=== PATIENT | male | born 1930 | race American Indian/Alaskan Native ===

== ENCOUNTER 2016-05-26 12:47 | Emergency (ER) | payer MEDICARE, OTHER ==
[~2016-05-26] VITALS: Ht 157.5 cm; Wt 56.7 kg
[~2016-05-26 12:47] MED LIST: ALLO300T2 PO; CARV3.1240 PO; CLOP75TA28 PO; DICL1GEL26 TOP; FURO40TA4 PO; MAGN400T5 PO; OMEP20CA5 PO; POTA10TA34 PO; TORS20TA20 PO; [UNRECOGNIZED DRUG - CODE] IV
[2016-05-26 13:10] VITALS: BP 115/58
[2016-05-26 13:57] LABS: Basophils # (auto) 0 uL; Basophils % (auto) 0.1 % (0.0-2.0); Eosinophils # (auto) 0 uL; Eosinophils % (auto) 0.6 % (0.0-7.0); Hematocrit 38.5 % (41.0-53.0); Hemoglobin 12.9 g/dL (13.5-17.5); Lymphocytes % (auto) 14.6 % (10.0-50.0); Mean Corpuscular Hemoglobin 31.1 pg (28.0-32.0); Mean Corpuscular Hgb Conc. 33.5 g/dL (32.0-36.0); Mean Corpuscular Volume 92.8 fL (80.0-100.0); Mean Platelet Volume 8.8 fL (7.4-10.4); Monocytes # (auto) 0.8 uL; Monocytes % (auto) 11.4 % (0.0-12.0); Neutrophils # (auto) 4.9 uL; Neutrophils % (auto) 73.3 % (37.0-80.0); Platelet Count (auto) 187 10^3/uL (140-450); Red Cell Distribution Width 12.5 % (11.6-16.0); White Blood Cell 6.6 10^3/uL (4.4-10.8)
[2016-05-26 14:19] LABS: Albumin 3.8 g/dL (3.4-5.0); BUN/Creatinine Ratio 15.9; Bilirubin, Total 1.2 mg/dL (0.2-1.0); Calcium 9.1 mg/dL (8.5-10.1); Potassium 3.9 mmol/L (3.5-5.1); Total Protein 8.3 g/dL (6.4-8.2)
== END 2016-05-26 21:00 | disposition left against medical advice (07) ==
LOC: ER 12:49
DX: M25.512 Pain in left shoulder (principal); R42 Dizziness and giddiness; W18.39XA Other fall on same level, initial encounter; Y93.89 Activity, other specified; Y99.9 Unspecified external cause status; Y92.89 Other specified places as the place of occurrence of the external cause
CPT/HCPCS: 36415; 73030; 80053; 84484; 85025; 93005

== ENCOUNTER → 2016-11-29 | Outpatient (CLI) | payer MEDICARE, OTHER ==
[~2016-11-29] MED LIST changes: -OMEP20CA5 PO; +OMEP20CA74 PO
== END | disposition home or self-care (01) ==
LOC: Rad HDHVI 13:14
PROVIDERS: ATTEND Internal Medicine Cardiovascular Disease
DX: I25.5 Ischemic cardiomyopathy (principal); I35.0 Nonrheumatic aortic (valve) stenosis
CPT/HCPCS: 93306

== ENCOUNTER → 2016-12-16 | Outpatient (CLI) | payer MEDICARE, OTHER ==
[~2016-12-16] MED LIST changes: +LIDOCAINE 1% HCL (LOCAL ANESTH.) INJ 20ML MDV ID ONE; +SODIUM CHLOR 0.9% PF (SALINE LOCK) 10ML VIAL IV SCH
[2016-12-16 10:22] LABS: Prothrombin Time 12.4 sec (9.0-12.0)
[2016-12-16 11:18] LABS: INR 1.01 (0.9-1.15)
== END | disposition home or self-care (01) ==
LOC: CHF HDHVI 10:02
PROVIDERS: ATTEND Internal Medicine Cardiovascular Disease
DX: Z45.2 Encounter for adjustment and management of vascular access device (principal); I50.9 Heart failure, unspecified; I51.7 Cardiomegaly; J81.1 Chronic pulmonary edema
CPT/HCPCS: 36415; 36569; 71010; 85610; 85730; C1751; G0463; J7050

== ENCOUNTER → 2017-03-14 | Outpatient (CLI) | payer MEDICARE, OTHER ==
[~2017-03-14] MED LIST changes: -LIDOCAINE 1% HCL (LOCAL ANESTH.) INJ 20ML MDV ID ONE; -SODIUM CHLOR 0.9% PF (SALINE LOCK) 10ML VIAL IV SCH
== END | disposition home or self-care (01) ==
LOC: Rad HDHVI 12:55
PROVIDERS: ATTEND Internal Medicine Cardiovascular Disease
DX: I25.5 Ischemic cardiomyopathy (principal); I35.1 Nonrheumatic aortic (valve) insufficiency; I70.0 Atherosclerosis of aorta; I72.8 Aneurysm of other specified arteries; I50.23 Acute on chronic systolic (congestive) heart failure
CPT/HCPCS: 93306

== ENCOUNTER → 2017-03-24 | Outpatient (CLI) | payer MEDICARE, OTHER ==
[~2017-03-24] VITALS: Ht 162.6 cm; Wt 59.1 kg
[~2017-03-24] MED LIST changes: +ADENOSINE 49 MG in GIVE UN-DILUTED 0 ML IV ONE; +ADENOSINE 90 MG/30 ML INJ IV ONE
[2017-03-24 13:15] VITALS: BP 121/53
== END | disposition home or self-care (01) ==
LOC: Rad HDHVI 09:47
PROVIDERS: ATTEND Internal Medicine Cardiovascular Disease
DX: I11.0 Hypertensive heart disease with heart failure (principal); I50.23 Acute on chronic systolic (congestive) heart failure; E78.00 Pure hypercholesterolemia, unspecified; Z95.1 Presence of aortocoronary bypass graft; I25.5 Ischemic cardiomyopathy
CPT/HCPCS: 78452; 93005; 93701; 96374; 96375; A9500; G0463; J0153

== ENCOUNTER 2017-05-21 05:37 | Inpatient (IN) | payer MEDICARE, OTHER ==
[~2017-05-21] VITALS: Ht 149.9 cm; Wt 63.0 kg
[~2017-05-21 05:37] MED LIST changes: -ADENOSINE 49 MG in GIVE UN-DILUTED 0 ML IV ONE; -ADENOSINE 90 MG/30 ML INJ IV ONE
[2017-05-21 06:35] LABS: Basophils # (auto) 0 uL; Basophils % (auto) 0.5 % (0.0-2.0); Eosinophils # (auto) 0.1 uL; Eosinophils % (auto) 2.7 % (0.0-7.0); Hematocrit 34.1 % (41.0-53.0); Hemoglobin 11.8 g/dL (13.5-17.5); Lymphocytes # (auto) 0.7 uL; Lymphocytes % (auto) 22.5 % (10.0-50.0); Mean Corpuscular Hemoglobin 32.5 pg (28.0-32.0); Mean Corpuscular Hgb Conc. 34.5 g/dL (32.0-36.0); Mean Corpuscular Volume 94.4 fL (80.0-100.0); Monocytes # (auto) 0.3 uL; Monocytes % (auto) 8.2 % (0.0-12.0); Neutrophils # (auto) 2.2 uL; Neutrophils % (auto) 66.1 % (37.0-80.0); Nucleated Red Blood Cells % 0.1 %; Platelet Count (auto) 151 10^3/uL (140-450); Red Blood Cells 3.61 10^6/uL (4.5-5.90); Red Cell Distribution Width 12.7 % (11.8-14.3); White Blood Cell 3.3 10^3/uL (4.4-10.8)
[2017-05-21] MEDS ORDERED: SODIUM CHLORIDE 0.9% 1,000 ML IV ONE (06:55)
[2017-05-21 06:59] LABS: Albumin 3.4 g/dL (3.4-5.0); BUN/Creatinine Ratio 14.7; Bilirubin, Total 0.9 mg/dL (0.2-1.0); Calcium 8.3 mg/dL (8.5-10.1); Magnesium 2.5 mg/dL (1.6-2.6); Potassium 4.3 mmol/L (3.5-5.1); Total Protein 7.1 g/dL (6.4-8.2)
[2017-05-21 07:41] LABS: INR 1.05 (0.9-1.15); Partial Thromboplastin Time 30.1 sec (22.64-33.71); Prothrombin Time 11.4 sec (9.37-12.3)
[2017-05-21] MEDS ORDERED: FUROSEMIDE 40 MG/4 ML VIAL IV ONE (08:45)
[2017-05-21] MEDS ORDERED: ONDANSETRON HCL 4 MG/2 ML VIAL IV ONE (08:45)
[2017-05-21] MEDS ORDERED: SPIRONOLACTONE 25 MG TAB PO ONE (08:45)
[2017-05-21] MEDS ORDERED: MORPHINE SULFATE 4 MG/ML SYR/VIAL IV ONE (08:45)
[2017-05-21] MEDS ORDERED: MORPHINE SULF 15mg ER tab PO ONE (09:00)
[2017-05-21] MEDS ORDERED: NITROGLYCERIN 0.4 MG SL TAB SL PRN (10:00)
[2017-05-21] MEDS ORDERED: HYDROmorphone HCL 2 MG/ML VL IV PRN (10:15)
[2017-05-21] MEDS ORDERED: ENOXAPARIN SOD 30 MG/0.3 ML SYRINGE IV ONE (10:15)
[2017-05-21] MEDS ORDERED: DOBUTamine 1000MCG/ML 250 ML IV SCH (10:45)
[2017-05-21] MEDS: ENOXAPARIN SOD 60 MG/0.6 ML SYRINGE SC SCH (10:49)
[2017-05-21 20:40] VITALS: BP 120/65
[2017-05-21] MEDS: POTASSIUM CHL 10 Meq TABLET PO SCH (21:37)
[2017-05-21] MEDS: CARVEDILOL 3.125 MG TAB PO SCH (21:38)
[2017-05-21 22:00] VITALS: BP 120/65
[2017-05-21] MEDS ORDERED: ENOXAPARIN SOD 60 MG/0.6 ML SYRINGE SC SCH (22:00)
[2017-05-22] MEDS ORDERED: ACETAMINOPHEN 500 MG TAB PO PRN (02:15)
[2017-05-22 05:00] VITALS: BP 122/77
[2017-05-22] MEDS: POTASSIUM CHL 10 Meq TABLET PO SCH ×3 (06:01→21:31)
[2017-05-22 08:00] VITALS: BP 116/67
[2017-05-22] MEDS: COLCHICINE 0.6 MG TAB PO SCH (09:57)
[2017-05-22] MEDS: ENOXAPARIN SOD 60 MG/0.6 ML SYRINGE SC SCH (09:57)
[2017-05-22] MEDS: traMADol HCL 50 MG TAB PO SCH (09:57)
[2017-05-22] MEDS: CLOPIDOGREL BISULFATE 75 MG TAB PO SCH (09:57)
[2017-05-22] MEDS: CARVEDILOL 3.125 MG TAB PO SCH ×2 (09:58→21:32)
[2017-05-22] MEDS ORDERED: DOBUTAMINE 1000 MG/250 ML IV SCH (10:00)
[2017-05-22] MEDS ORDERED: D5W IV SCH (10:00)
[2017-05-22 12:00] VITALS: BP 86/46
[2017-05-22 14:44] LABS: BUN/Creatinine Ratio 14.6; Calcium 8.1 mg/dL (8.5-10.1); Potassium 4.4 mmol/L (3.5-5.1)
[2017-05-22 17:00] VITALS: BP 100/70
[2017-05-22 22:06] VITALS: BP 117/72
[2017-05-23] MEDS: POTASSIUM CHL 10 Meq TABLET PO SCH (05:27)
[2017-05-23 05:38] VITALS: BP 124/77
[2017-05-23 08:37] VITALS: BP 114/65
[2017-05-23] MEDS: ENOXAPARIN SOD 60 MG/0.6 ML SYRINGE SC SCH (09:32)
[2017-05-23] MEDS: CLOPIDOGREL BISULFATE 75 MG TAB PO SCH (09:35)
[2017-05-23] MEDS: traMADol HCL 50 MG TAB PO SCH (09:35)
[2017-05-23] MEDS: COLCHICINE 0.6 MG TAB PO SCH (09:35)
[2017-05-23] MEDS: CARVEDILOL 3.125 MG TAB PO SCH (09:36)
[2017-05-23 13:00] VITALS: BP 105/63
== END 2017-05-23 14:53 | disposition home health service (06) | DRG 280 ==
LOC: ER 05:38 → EDUNIT# 05:39 → TELE 05:39 → TELE-CENTR 20:49
PROVIDERS: ADMIT Internal Medicine Cardiovascular Disease; ATTEND Internal Medicine Cardiovascular Disease
PROC: 02H633Z Insertion of Infusion Device into Right Atrium, Percutaneous Approach (ICD-10-PCS; principal; 2017-05-22)
DX: I21.4 Non-ST elevation (NSTEMI) myocardial infarction (principal); I50.43 Acute on chronic combined systolic (congestive) and diastolic (congestive) heart failure; Z95.1 Presence of aortocoronary bypass graft; Z79.899 Other long term (current) drug therapy; I25.110 Atherosclerotic heart disease of native coronary artery with unstable angina pectoris; I25.5 Ischemic cardiomyopathy; Z95.810 Presence of automatic (implantable) cardiac defibrillator
CPT/HCPCS: 36415; 36600; 71010; 71045; 80048; 80053; 82805; 83735; 83880; 84443; 84484; 85025; 85379; 85610; 85730; 93005; 96372; 96374; 96375; J2405

== ENCOUNTER 2017-05-26 15:23 | Inpatient (IN) | payer MEDICARE, OTHER ==
[~2017-05-26] VITALS: Ht 157.5 cm; Wt 61.1 kg
[2017-05-26 11:35] VITALS: BP 93/70
[2017-05-26 17:00] LABS: Basophils # (auto) 0 uL; Eosinophils # (auto) 0.1 uL; Eosinophils % (auto) 2.4 % (0.0-7.0); Hematocrit 35.6 % (41.0-53.0); Hemoglobin 11.8 g/dL (13.5-17.5); Lymphocytes # (auto) 0.9 uL; Mean Corpuscular Hemoglobin 31.6 pg (28.0-32.0); Mean Corpuscular Hgb Conc. 33.1 g/dL (32.0-36.0); Mean Corpuscular Volume 95.2 fL (80.0-100.0); Monocytes # (auto) 0.2 uL; Monocytes % (auto) 7.5 % (0.0-12.0); Neutrophils # (auto) 1.9 uL; Neutrophils % (auto) 61.1 % (37.0-80.0); Nucleated Red Blood Cells % 0.1 %; Platelet Count (auto) 192 10^3/uL (140-450); Red Blood Cells 3.74 10^6/uL (4.5-5.90); Red Cell Distribution Width 13.1 % (11.8-14.3); White Blood Cell 3.1 10^3/uL (4.4-10.8)
[2017-05-26 17:12] LABS: Albumin 3.6 g/dL (3.4-5.0); Amylase 51 U/L (25-115); BUN/Creatinine Ratio 11.9; Calcium 8.2 mg/dL (8.5-10.1); Lipase 94 U/L (73-393); Potassium 4.5 mmol/L (3.5-5.1)
[2017-05-26 17:17] LABS: Bilirubin, Total 0.7 mg/dL (0.2-1.0); Total Protein 7.4 g/dL (6.4-8.2)
[2017-05-26] MEDS ORDERED: SODIUM CHLORIDE 0.9% 1,000 ML IV ONE (17:42)
[2017-05-26] MEDS ORDERED: METOCLOPRAMIDE HCL 5MG/ml INJ 2ml VIAL IV PRN (22:45)
[2017-05-26] MEDS ORDERED: MORPHINE SULFATE 4 MG/ML SYR/VIAL IV PRN (22:45)
[2017-05-27 05:00] VITALS: BP 107/61
[2017-05-27] MEDS: POTASSIUM CHL 10 Meq TABLET PO SCH ×3 (05:35→22:25)
[2017-05-27] MEDS: LEVOFLOXACIN 500MG 100 ML IV SCH (11:20)
[2017-05-27] MEDS: COLCHICINE 0.6 MG TAB PO SCH (11:20)
[2017-05-27] MEDS: FAMOTIDINE 20 MG TAB PO SCH ×2 (11:21→22:25)
[2017-05-27] MEDS: CARVEDILOL 3.125 MG TAB PO SCH ×2 (11:21→22:24)
[2017-05-27] MEDS: CLOPIDOGREL BISULFATE 75 MG TAB PO SCH (11:21)
[2017-05-27] MEDS: traMADol HCL 50 MG TAB PO SCH (11:22)
[2017-05-27] MEDS: NITROGLYCERIN 0.4 MG SL TAB SL PRN ×2 (12:50→13:00)
[2017-05-27 22:00] VITALS: BP 131/68
[2017-05-28 05:00] VITALS: BP 115/51
[2017-05-28] MEDS: POTASSIUM CHL 10 Meq TABLET PO SCH ×3 (05:50→22:35)
[2017-05-28 09:00] VITALS: BP 114/54
[2017-05-28] MEDS: CARVEDILOL 3.125 MG TAB PO SCH ×2 (09:53→22:35)
[2017-05-28] MEDS: traMADol HCL 50 MG TAB PO SCH (09:54)
[2017-05-28] MEDS: FAMOTIDINE 20 MG TAB PO SCH ×2 (09:55→22:35)
[2017-05-28] MEDS: COLCHICINE 0.6 MG TAB PO SCH (09:55)
[2017-05-28] MEDS: LEVOFLOXACIN 500MG 100 ML IV SCH (09:55)
[2017-05-28] MEDS: CLOPIDOGREL BISULFATE 75 MG TAB PO SCH (09:55)
[2017-05-28 13:00] VITALS: BP 111/56
[2017-05-28 17:00] VITALS: BP 118/67
[2017-05-28 21:29] VITALS: BP 110/48
[2017-05-29] MEDS: POTASSIUM CHL 10 Meq TABLET PO SCH ×2 (05:32→14:00)
[2017-05-29 05:38] VITALS: BP 123/68
[2017-05-29 09:00] VITALS: BP 92/39
[2017-05-29] MEDS: CARVEDILOL 3.125 MG TAB PO SCH (10:00)
[2017-05-29] MEDS: CLOPIDOGREL BISULFATE 75 MG TAB PO SCH (10:28)
[2017-05-29] MEDS: traMADol HCL 50 MG TAB PO SCH (10:29)
[2017-05-29] MEDS: COLCHICINE 0.6 MG TAB PO SCH (10:29)
[2017-05-29] MEDS: FAMOTIDINE 20 MG TAB PO SCH (10:29)
[2017-05-29] MEDS: LEVOFLOXACIN 500MG 100 ML IV SCH (10:30)
[2017-05-29 13:00] VITALS: BP 119/61
== END 2017-05-29 17:08 | disposition home or self-care (01) | DRG 280 ==
LOC: ER 15:25 → TELE 15:26 → EDUNIT# 15:26 → TELE-WESTW 23:32
PROVIDERS: ADMIT Internal Medicine Cardiovascular Disease; ATTEND Internal Medicine Cardiovascular Disease
DX: I21.4 Non-ST elevation (NSTEMI) myocardial infarction (principal); I50.21 Acute systolic (congestive) heart failure; K57.32 Diverticulitis of large intestine without perforation or abscess without bleeding; I25.5 Ischemic cardiomyopathy; K43.9 Ventral hernia without obstruction or gangrene; I25.10 Atherosclerotic heart disease of native coronary artery without angina pectoris; K44.9 Diaphragmatic hernia without obstruction or gangrene; M10.9 Gout, unspecified; Z86.79 Personal history of other diseases of the circulatory system; Z95.1 Presence of aortocoronary bypass graft; Z95.0 Presence of cardiac pacemaker; Z88.0 Allergy status to penicillin; Z79.899 Other long term (current) drug therapy
CPT/HCPCS: 36415; 74176; 80053; 82150; 83690; 84484; 85025; 87081; 93005; 94761; 96360; 97163; J1956

== ENCOUNTER → 2017-05-31 | Outpatient (CLI) | payer MEDICARE, OTHER ==
[~2017-05-31] VITALS: Ht 33 cm; Wt 0.5 kg
[~2017-05-31] MED LIST changes: +CYANOCOBALAMIN (B-12) 1000 MCG/1 ML VIAL IM ONE; +CYANOCOBALAMIN (B-12) 1000 MCG/1 ML VIAL ONE; +FUROSEMIDE 100 MG/10ML VIAL IV ONE; +FUROSEMIDE 40 MG/4 ML VIAL ONE; +POTASSIUM CHL 20 Meq TABLET PO ONE
[2017-05-31 16:15] VITALS: BP 128/70
[2017-05-31 16:40] VITALS: BP 126/67
== END | disposition home or self-care (01) ==
LOC: CHF HDHVI 16:11
PROVIDERS: ATTEND Internal Medicine Cardiovascular Disease
DX: I50.9 Heart failure, unspecified (principal); E87.70 Fluid overload, unspecified
CPT/HCPCS: 96374; G0463; J1642; J1940; J3420; 96372

== ENCOUNTER → 2017-06-02 | Outpatient (CLI) | payer MEDICARE, OTHER ==
[~2017-06-02] MED LIST changes: -CYANOCOBALAMIN (B-12) 1000 MCG/1 ML VIAL IM ONE; -CYANOCOBALAMIN (B-12) 1000 MCG/1 ML VIAL ONE; -FUROSEMIDE 100 MG/10ML VIAL IV ONE; -FUROSEMIDE 40 MG/4 ML VIAL ONE; -POTASSIUM CHL 20 Meq TABLET PO ONE; +TESTOSTERONE CYPIONATE 200 MG/ML 1ML VIAL IM ONE
[2017-06-02 14:30] VITALS: BP 132/55
[2017-06-02 14:45] LABS: Basophils # (auto) 0 uL; Basophils % (auto) 0.5 % (0.0-2.0); Eosinophils # (auto) 0.1 uL; Eosinophils % (auto) 1.6 % (0.0-7.0); Hematocrit 40.3 % (41.0-53.0); Hemoglobin 12.5 g/dL (13.5-17.5); Lymphocytes # (auto) 0.9 uL; Lymphocytes % (auto) 21.3 % (10.0-50.0); Mean Corpuscular Volume 100.1 fL (80.0-100.0); Monocytes # (auto) 0.3 uL; Monocytes % (auto) 7.6 % (0.0-12.0); Nucleated Red Blood Cells % 0.4 %; Platelet Count (auto) 167 10^3/uL (140-450); Red Blood Cells 4.02 10^6/uL (4.5-5.90); Red Cell Distribution Width 13.8 % (11.8-14.3); White Blood Cell 4.4 10^3/uL (4.4-10.8)
[2017-06-02 15:14] LABS: Albumin 3.7 g/dL (3.4-5.0); BUN/Creatinine Ratio 15.5; Bilirubin, Total 0.8 mg/dL (0.2-1.0); Calcium 8.4 mg/dL (8.5-10.1); Magnesium 2.6 mg/dL (1.6-2.6); Potassium 4.9 mmol/L (3.5-5.1); Total Protein 7.6 g/dL (6.4-8.2)
== END | disposition home or self-care (01) ==
LOC: CHF HDHVI 12:04
PROVIDERS: ATTEND Internal Medicine Cardiovascular Disease
DX: J90 Pleural effusion, not elsewhere classified (principal); I11.0 Hypertensive heart disease with heart failure; I50.9 Heart failure, unspecified; D64.9 Anemia, unspecified; E83.42 Hypomagnesemia; M85.80 Other specified disorders of bone density and structure, unspecified site; I25.10 Atherosclerotic heart disease of native coronary artery without angina pectoris
CPT/HCPCS: 36415; 71046; 80053; 83735; 83880; 85025; 96372; G0463; J1071; J1642; 96374

== ENCOUNTER → 2017-06-07 | Outpatient (CLI) | payer MEDICARE, OTHER ==
[~2017-06-07] MED LIST changes: +CYANOCOBALAMIN (B-12) 1000 MCG/1 ML VIAL IM ONE; +CYANOCOBALAMIN (B-12) 1000 MCG/1 ML VIAL ONE; +KETOROLAC TROMETH 30 MG/ML 1ML VIAL IM ONE; +KETOROLAC TROMETH 60MG/2ML VIAL IM ONE; -TESTOSTERONE CYPIONATE 200 MG/ML 1ML VIAL IM ONE
[2017-06-07 13:15] VITALS: BP 121/67
[2017-06-07 14:15] VITALS: BP 118/56
== END | disposition home or self-care (01) ==
LOC: CHF HDHVI 13:12
PROVIDERS: ATTEND Internal Medicine Cardiovascular Disease
DX: I50.9 Heart failure, unspecified (principal); R09.02 Hypoxemia; G89.29 Other chronic pain
CPT/HCPCS: 96372; 96374; G0463; J1642; J1885; J3420

== ENCOUNTER 2017-07-10 00:15 | Emergency (ER) | payer MEDICARE, OTHER ==
[~2017-07-10] VITALS: Ht 160 cm; Wt 56.7 kg
[~2017-07-10 00:15] MED LIST changes: -CYANOCOBALAMIN (B-12) 1000 MCG/1 ML VIAL IM ONE; -CYANOCOBALAMIN (B-12) 1000 MCG/1 ML VIAL ONE; -KETOROLAC TROMETH 30 MG/ML 1ML VIAL IM ONE; -KETOROLAC TROMETH 60MG/2ML VIAL IM ONE
[2017-07-10] MEDS ORDERED: MORPHINE SULFATE 4 MG/ML SYR/VIAL IV ONE (00:45)
[2017-07-10] MEDS ORDERED: ONDANSETRON HCL 4 MG/2 ML VIAL IV ONE (00:45)
[2017-07-10 00:57] LABS: Basophils # (auto) 0 uL; Basophils % (auto) 0.8 % (0.0-2.0); Eosinophils # (auto) 0.1 uL; Eosinophils % (auto) 2.4 % (0.0-7.0); Hematocrit 35.8 % (41.0-53.0); Hemoglobin 12.2 g/dL (13.5-17.5); Lymphocytes # (auto) 1.8 uL; Lymphocytes % (auto) 34.7 % (10.0-50.0); Mean Corpuscular Hgb Conc. 34.1 g/dL (32.0-36.0); Mean Corpuscular Volume 93.8 fL (80.0-100.0); Monocytes # (auto) 0.4 uL; Monocytes % (auto) 7.9 % (0.0-12.0); Neutrophils # (auto) 2.8 uL; Neutrophils % (auto) 54.2 % (37.0-80.0); Nucleated Red Blood Cells % 0.2 %; Platelet Count (auto) 163 10^3/uL (140-450); Red Blood Cells 3.82 10^6/uL (4.5-5.90); Red Cell Distribution Width 13.3 % (11.8-14.3); White Blood Cell 5.1 10^3/uL (4.4-10.8)
[2017-07-10 01:10] LABS: Albumin 3.8 g/dL (3.4-5.0); BUN/Creatinine Ratio 18.2; Calcium 8.4 mg/dL (8.5-10.1)
[2017-07-10 01:11] LABS: Partial Thromboplastin Time 26.4 sec (22.64-33.71); Prothrombin Time 10.9 sec (9.37-12.3)
[2017-07-10] MEDS ORDERED: ALBUTEROL SULF 2.5 MG/0.5ML(0.5%) NEB SOLN NEB ONE (01:15)
[2017-07-10] MEDS ORDERED: IPRATROPIUM BROM 0.5 MG/2.5ML INH SOL NEB ONE (01:15)
[2017-07-10] MEDS ORDERED: methylPREDNISolone SOD SUCC 125 MG/2 ML VL IV ONE (01:15)
[2017-07-10 01:21] LABS: Bilirubin, Total 0.7 mg/dL (0.2-1.0); Total Protein 7.6 g/dL (6.4-8.2)
[2017-07-10] MEDS ORDERED: FUROSEMIDE 20 MG/2 ML VIAL IV ONE (03:15)
[2017-07-10 13:30] VITALS: BP 117/63
== END 2017-07-10 15:04 | disposition home or self-care (01) ==
LOC: ER 00:15
DX: I50.43 Acute on chronic combined systolic (congestive) and diastolic (congestive) heart failure (principal); J45.901 Unspecified asthma with (acute) exacerbation; N28.9 Disorder of kidney and ureter, unspecified; M10.9 Gout, unspecified; I25.10 Atherosclerotic heart disease of native coronary artery without angina pectoris; I25.2 Old myocardial infarction; Z95.1 Presence of aortocoronary bypass graft; Z95.0 Presence of cardiac pacemaker; Z88.0 Allergy status to penicillin
CPT/HCPCS: 36415; 71045; 80053; 83880; 84484; 85025; 85379; 85610; 85730; 93005; 94640; 94761; 96374; 96375; 99285; J1940; J2270; J2405; J2930

== ENCOUNTER 2017-10-25 13:45 | Inpatient (IN) | payer MEDICARE, OTHER ==
[~2017-10-25] VITALS: Ht 154.9 cm
[~2017-10-25 13:45] MED LIST changes: +CLOP75TA41 PO; +COLCPOW2 PO; +POTA10TA79 PO; +SACU1TAB PO; +TRAM50TA2 PO
[2017-10-25 15:13] LABS: Basophils # (auto) 0.1 uL; Basophils % (auto) 1.1 % (0.0-2.0); Eosinophils # (auto) 0 uL; Eosinophils % (auto) 0.6 % (0.0-7.0); Hematocrit 39.9 % (41.0-53.0); Lymphocytes # (auto) 0.6 uL; Lymphocytes % (auto) 11.2 % (10.0-50.0); Mean Corpuscular Hemoglobin 31.1 pg (28.0-32.0); Mean Corpuscular Hgb Conc. 32.5 g/dL (32.0-36.0); Mean Corpuscular Volume 95.8 fL (80.0-100.0); Monocytes # (auto) 0.5 uL; Monocytes % (auto) 9.5 % (0.0-12.0); Neutrophils # (auto) 3.9 uL; Neutrophils % (auto) 77.6 % (37.0-80.0); Nucleated Red Blood Cells % 0.2 %; Platelet Count (auto) 164 10^3/uL (140-450); Red Blood Cells 4.17 10^6/uL (4.5-5.90); Red Cell Distribution Width 17.6 % (11.8-14.3)
[2017-10-25 15:22] LABS: Albumin 3.1 g/dL (3.4-5.0); Calcium 8.7 mg/dL (8.5-10.1); Magnesium 3.1 mg/dL (1.6-2.6); Potassium 3.5 mmol/L (3.5-5.1)
[2017-10-25 15:25] LABS: INR 1.25 (0.9-1.15); Partial Thromboplastin Time 26.4 sec (23.78-33.04); Prothrombin Time 13.2 sec (9.27-12.13)
[2017-10-25 15:34] LABS: BUN/Creatinine Ratio 29.6
[2017-10-25 16:07] LABS: Bilirubin, Total 2.3 mg/dL (0.2-1.0); Total Protein 7.5 g/dL (6.4-8.2)
[2017-10-25] MEDS ORDERED: POTA10TA34 PO (17:03)
[2017-10-25] MEDS ORDERED: CARV3.1240 PO (17:03)
[2017-10-25] MEDS ORDERED: TRAM50TA2 PO (17:08)
[2017-10-25] MEDS ORDERED: traMADol HCL 50 MG TAB PO PRN (19:00)
[2017-10-25] MEDS ORDERED: NITROGLYCERIN 0.4 MG SL TAB SL PRN (19:00)
[2017-10-25] MEDS ORDERED: FUROSEMIDE INJECTION 100 MG in SODIUM CHL 0.9% 90 ML IV ONE (19:30)
[2017-10-25 20:37] LABS: Urine Bacteria NONE SEEN /hpf (None Seen); Urine Blood Negative /uL (Negative); Urine Hyaline Cast MANY /lpf (0 - 2); Urine Mucus FEW (None Seen); Urine Specific Gravity 1.013 (1.001-1.035); Urine WBC 2 /hpf (0 - 3)
[2017-10-25] MEDS: POTASSIUM CHL 20 Meq TABLET PO SCH (22:00)
[2017-10-25] MEDS: CARVEDILOL 3.125 MG TAB PO SCH (23:23)
[2017-10-25] MEDS: MAGNESIUM OXIDE 400 MG TAB PO SCH (23:24)
[2017-10-26] MEDS ORDERED: DOBUTamine 1000MCG/ML 250 ML IV SCH (04:00)
[2017-10-26 05:47] LABS: BUN/Creatinine Ratio 34.5; Calcium 8.6 mg/dL (8.5-10.1); Potassium 3.3 mmol/L (3.5-5.1)
[2017-10-26 08:30] VITALS: BP 95/57
[2017-10-26] MEDS: CLOPIDOGREL BISULFATE 75 MG TAB PO SCH (10:00)
[2017-10-26] MEDS ORDERED: COLCHICINE 0.6 MG TAB PO SCH (10:00)
[2017-10-26] MEDS: CARVEDILOL 3.125 MG TAB PO SCH ×2 (10:00→22:00)
[2017-10-26] MEDS: TORSEMIDE 20 MG TAB PO SCH (10:00)
[2017-10-26] MEDS: POTASSIUM CHL 20 Meq TABLET PO SCH ×2 (10:00→22:00)
[2017-10-26] MEDS: MAGNESIUM OXIDE 400 MG TAB PO SCH ×2 (10:00→22:00)
[2017-10-26 12:30] VITALS: BP 97/60
[2017-10-26 16:00] VITALS: BP 96/59
[2017-10-26 22:00] VITALS: BP 91/57
[2017-10-26] MEDS: MEPERIDINE HCL (25 MG/ML) 1ML VIAL IV SCH (22:00)
[2017-10-27] MEDS: MEPERIDINE HCL (25 MG/ML) 1ML VIAL IV SCH ×5 (01:31→14:08)
[2017-10-27 05:00] VITALS: BP 84/49
[2017-10-27 08:00] VITALS: BP 95/63
[2017-10-27 09:00] VITALS: BP 95/63
[2017-10-27] MEDS: COLCHICINE 0.6 MG TAB PO SCH (09:11)
[2017-10-27] MEDS: TORSEMIDE 20 MG TAB PO SCH (09:40)
[2017-10-27] MEDS: POTASSIUM CHL 20 Meq TABLET PO SCH ×2 (09:42→22:00)
[2017-10-27] MEDS: CARVEDILOL 3.125 MG TAB PO SCH ×2 (09:44→22:00)
[2017-10-27] MEDS: MAGNESIUM OXIDE 400 MG TAB PO SCH ×2 (09:44→22:00)
[2017-10-27] MEDS: CLOPIDOGREL BISULFATE 75 MG TAB PO SCH (09:45)
[2017-10-27 12:42] VITALS: BP 92/76
[2017-10-27 16:54] VITALS: BP 91/56
[2017-10-27] MEDS ORDERED: MEPERIDINE HCL (25 MG/ML) 1ML VIAL IV PRN (18:00)
[2017-10-27 21:37] VITALS: BP 88/55
[2017-10-28 05:13] VITALS: BP 86/59
[2017-10-28 08:00] VITALS: BP 88/55
[2017-10-28 09:00] VITALS: BP 96/56
[2017-10-28] MEDS: POTASSIUM CHL 20 Meq TABLET PO SCH ×2 (10:00→21:38)
[2017-10-28] MEDS: MAGNESIUM OXIDE 400 MG TAB PO SCH ×2 (10:00→21:39)
[2017-10-28] MEDS: CARVEDILOL 3.125 MG TAB PO SCH ×2 (10:00→21:38)
[2017-10-28] MEDS: CLOPIDOGREL BISULFATE 75 MG TAB PO SCH (10:00)
[2017-10-28] MEDS: TORSEMIDE 20 MG TAB PO SCH (10:00)
[2017-10-28] MEDS: MEPERIDINE HCL (25 MG/ML) 1ML VIAL IV PRN (12:43)
[2017-10-28 13:00] VITALS: BP 91/58
[2017-10-28] MEDS: LORazepam 2MG/ML-1ML VIAL IV PRN (15:34)
[2017-10-28 17:52] VITALS: BP 96/60
[2017-10-28 22:00] VITALS: BP 111/67
[2017-10-29] MEDS: MEPERIDINE HCL (25 MG/ML) 1ML VIAL IV PRN ×3 (01:12→16:44)
[2017-10-29 05:00] VITALS: BP 98/70
[2017-10-29 07:53] VITALS: BP 88/55
[2017-10-29 08:28] VITALS: BP 91/59
[2017-10-29] MEDS: CLOPIDOGREL BISULFATE 75 MG TAB PO SCH (10:00)
[2017-10-29] MEDS: POTASSIUM CHL 20 Meq TABLET PO SCH ×2 (10:00→22:00)
[2017-10-29] MEDS: MAGNESIUM OXIDE 400 MG TAB PO SCH ×2 (10:00→22:00)
[2017-10-29] MEDS: TORSEMIDE 20 MG TAB PO SCH (10:00)
[2017-10-29] MEDS: CARVEDILOL 3.125 MG TAB PO SCH ×2 (10:00→22:00)
[2017-10-29] MEDS: COLCHICINE 0.6 MG TAB PO SCH (10:00)
[2017-10-29] MEDS: LORazepam 2MG/ML-1ML VIAL IV PRN ×3 (10:34→23:40)
[2017-10-29 12:58] VITALS: BP 96/60
[2017-10-29 17:11] VITALS: BP 94/63
[2017-10-29 21:42] VITALS: BP 77/38
[2017-10-30] MEDS: MEPERIDINE HCL (25 MG/ML) 1ML VIAL IV PRN ×3 (03:15→19:53)
[2017-10-30 08:47] VITALS: BP 90/45
[2017-10-30] MEDS: CLOPIDOGREL BISULFATE 75 MG TAB PO SCH (10:00)
[2017-10-30] MEDS: POTASSIUM CHL 20 Meq TABLET PO SCH ×2 (10:00→21:45)
[2017-10-30] MEDS: CARVEDILOL 3.125 MG TAB PO SCH ×2 (10:00→21:45)
[2017-10-30] MEDS: MAGNESIUM OXIDE 400 MG TAB PO SCH ×2 (10:00→21:45)
[2017-10-30] MEDS: TORSEMIDE 20 MG TAB PO SCH (10:00)
[2017-10-30] MEDS: LORazepam 2MG/ML-1ML VIAL IV PRN ×4 (12:24→21:45)
[2017-10-30 13:56] VITALS: BP 92/56
[2017-10-30 17:00] VITALS: BP 85/41
[2017-10-30 21:33] VITALS: BP 50/33
== END 2017-10-30 22:16 | disposition expired | DRG 682 ==
LOC: ER 13:45 → EDBD 13:45 → TELE 13:46 → TELE-WESTW 10-26 07:26 → WEST WING 10-28 23:30
PROVIDERS: ADMIT Internal Medicine Cardiovascular Disease; ATTEND Internal Medicine Cardiovascular Disease
DX: N17.0 Acute kidney failure with tubular necrosis (principal); G93.41 Metabolic encephalopathy; I50.43 Acute on chronic combined systolic (congestive) and diastolic (congestive) heart failure; I11.0 Hypertensive heart disease with heart failure; I25.5 Ischemic cardiomyopathy; E87.6 Hypokalemia; I48.91 Unspecified atrial fibrillation; I25.10 Atherosclerotic heart disease of native coronary artery without angina pectoris; D64.9 Anemia, unspecified; Z66 Do not resuscitate; Z51.5 Encounter for palliative care; M10.9 Gout, unspecified; I46.9 Cardiac arrest, cause unspecified; Z88.5 Allergy status to narcotic agent; Z95.810 Presence of automatic (implantable) cardiac defibrillator; Z95.1 Presence of aortocoronary bypass graft; Z88.0 Allergy status to penicillin
CPT/HCPCS: 36415; 51702; 71045; 80048; 80053; 81001; 82962; 83735; 83880; 84484; 85025; 85610; 85730; 93005; 94761; 96365; 96367